=== PATIENT | female | born 1970 | race Caucasian/White ===

== ENCOUNTER → 2019-09-13 | Outpatient (CLI) | payer OTHER ==
--- NOTE | 2019-09-18 13:45 | 24HR ---
[place] [address] [employer]OLTER MONITOR REPORT Name: SAMANTHA MGEULA Boucher Room: [facility]#: [id number] Admission: 09/13/19 Attend Phys: LUPE ZHOU Discharge: Date of : 66 Date of Service: 09/16/19 0846 Report #: [id number] THIS REPORT FOR: cc: Homar Dumont Bradley L. DO Holkins,Ray Pineda MD [facility] ~ THIS REPORT FOR: //name// [facility] Test Date: 2019-09-16 Test Time: 08:46:51 Pat Name: SU MG Department: Room: Gender: F Ball Racker: : 1970 Requested By: HERMANN RANDLE Order Number: [id number] Reading MD: Ray Post Interpretive Statements sinus rhythm at rates of 60-161, average 94 occasional pvc's with rare couplet occasional pac's with rare couplet no significant pauses palpitations noted; no associated arrhythmias Electronically Signed On 09-16-2019 13:18:36 [employer]IC [employer]RA[employer] SETTER by Ray Post [email or web address] <ELECTRONICALLY SIGNED> By: Ray Post MD, FAC 09/16/19 1318 0846 0846 Ray Post MD, FAC /EPI
== END ==
LOC: M.CRD 10:08
DX: R00.0 Tachycardia, unspecified (principal)